=== PATIENT | female | born 1980 | race Two or more races ===

== ENCOUNTER → 2016-05-23 | Outpatient (CLI) | payer OTHER ==
[~2016-05-23] MED LIST: HYDROCHLOROTHIA25 MG PO; XANAX1 MG PO
--- NOTE | ~2016-05-23 | XA198 ---
[facility] A Service of [facility] & [facility] RADIOLOGY TEXT RESULTS PATIENT: DENI CONNER LOCATION: CIVR : 78 UNIT #: [id number] AGE: [address]: Manuel Zuniga II, MD SEX: F ORDER DR: [id number] [facility] [address] [place], [place] [address] [id number] O MR#: [id number] Acc #: [id number] NAME: DENI CONNER : 1980 SEX: F STUDY DATE/TIME: 05/23/2016 11:15 UNIT: CIVR ROOM: STUDY DESCRIPTION: XA Spinal Puncture Attending Physician: Manuel Zuniga II., M.D. Ordering Physician: Manuel Zuniga II., M.D. Primary Care Physician: Altaf Juan M.D. MEDICAL IMAGING REPORT This report is preliminary unless electronic signature is present EXAM Fluoroscopically guided lumbar puncture. INDICATIONS Visual changes. Patient also reports headache and ringing in the ears. FINDINGS The risks, benefits, and alternatives to the procedure were explained to the patient and signed, informed consent was obtained. She was placed prone on the angiographic table and was prepped and draped in the usual sterile fashion. Time-out was performed as per protocol. Skin and subcutaneous tissues were anesthetized with buffered lidocaine and a 20-gauge spinal needle was advanced into the spinal canal under fluoroscopic guidance. Positioning of the needle was confirmed with radiographic image. Upon removal of the inner stylet there is spontaneous drainage of clear CSF. Opening pressure was 24. Approximately 8 mL of clear CSF was removed. Closing pressure was 16. Total fluoroscopy time was 1.4 minutes. AK was 172 mGy. IMPRESSION Technically successful fluoroscopically guided lumbar puncture as noted above. Opening pressure was 24, closing pressure was 16 following removal of 8 mL of clear CSF. Dictated by... Idania Moulton M.D. THIS IS AN ELECTRONICALLY VERIFIED REPORT Idania Moulton M.D. at 05/24/2016 3:43 PM AFF/dj TD: 05/24/2016 11:25 JOB #: [id number] [facility] A Service of [facility] / [facility] RADIOLOGY TEXT RESULTS PATIENT: DENI CONNER LOCATION: [facility] : 78 UNIT #: [id number] AGE: [address]: Manuel Zuniga II, MD SEX: F ORDER DR: MEDICAL IMAGING REPORT Page 1 of 1 COPY
[2016-05-23 08:57] LABS: HEMATOCRIT 31.8 % (35.0-45.0); HEMOGLOBIN 10.5 gm/dL (12.0-16.0); MEAN CELL VOLUME 82.5 FL (83-96); MEAN CORPUSCULAR HEMOGLOBIN 27.3 PG (28-34); MEAN CORPUSCULAR HGB CONC 33.1 g/dL (30-36); MEAN PLATELET VOLUME 6.9 FL (6.5-11.5); RED BLOOD COUNT 3.86 X10e (3.90-5.30); RED CELL DISTRIBUTION WIDTH 14.9 % (11.0-15.5); WHITE BLOOD COUNT 9.8 X10e3 (4.0-10.5)
[2016-05-23 09:19] LABS: INR 0.9; PARTIAL THROMBOPLASTIN TIME 26.6 SECONDS (23.5-31.3); PROTHROMBIN TIME (PATIENT) 9.7 SECONDS (9.6-11.5)
== END | disposition home or self-care (01) ==
LOC: CIVR 08:22
PROVIDERS: Psychiatry & Neurology Neurology
PROC: 009U3ZZ Drainage of Spinal Canal, Percutaneous Approach (ICD-10-PCS; principal; 2016-05-23)
DX: H53.9 Unspecified visual disturbance (principal); Z79.899 Other long term (current) drug therapy
CPT/HCPCS: 36415; 77003; 85027; 85610; 85730; C1713